=== PATIENT | female | born 2000 | race Caucasian/White ===

== ENCOUNTER 2020-05-21 03:49 | Outpatient (CLI) | payer OTHER ==
[~2020-05-21 03:49] MED LIST: PRENATAL VITAM1 EAC8 PO
== END 2020-05-21 07:57 | disposition home or self-care (01) ==
LOC: GENOP 03:49
DX: O26.893 Other specified pregnancy related conditions, third trimester (principal); R10.9 Unspecified abdominal pain; Z3A.37 37 weeks gestation of pregnancy
CPT/HCPCS: G0463; J7120

== ENCOUNTER 2020-06-04 05:21 | Inpatient (IN) | payer BC, OTHER ==
[~2020-06-04] VITALS: Ht 162.6 cm; Wt 81.6 kg
[2020-06-04 06:09] LABS: HEMOGLOBIN 12.4 gm/dl (12.3-15.3); RED BLOOD COUNT 4.15 M/UL (4.00-5.10); WHITE BLOOD COUNT 7.8 K/UL (4.5-11.0)
[2020-06-04] MEDS ORDERED: SERTRALINE HCL50 MG PO (06:32)
[2020-06-05 06:39] LABS: HEMOGLOBIN 13.6 gm/dl (12.3-15.3)
[2020-06-05] MEDS ORDERED: DOCUSATE SODIU100 MG PO (11:51)
[2020-06-05] MEDS ORDERED: IBUPROFEN600 MG PO (11:51)
== END 2020-06-05 14:13 | disposition home or self-care (01) | DRG 807 ==
LOC: OB 05:21
PROVIDERS: ADMIT Obstetrics & Gynecology
PROC: 10E0XZZ Delivery of Products of Conception, External Approach (ICD-10-PCS; principal; 2020-06-04)
PROC: 4A1HX4Z Monitoring of Products of Conception, Cardiac Electrical Activity, External Approach (ICD-10-PCS; 2020-06-04)
PROC: 3E033VJ Introduction of Other Hormone into Peripheral Vein, Percutaneous Approach (ICD-10-PCS; 2020-06-04)
DX: O80 Encounter for full-term uncomplicated delivery (principal); Z37.0 Single live birth; Z3A.39 39 weeks gestation of pregnancy; Z20.822 Contact with and (suspected) exposure to COVID-19
CPT/HCPCS: 36415; 82800; 85014; 85018; 85025; 90707; 90715; J2590; J3010; J7120